=== PATIENT | female | born 1950 | race Caucasian/White ===

== ENCOUNTER 2016-08-28 12:31 | Outpatient (CLI) | payer OTHER ==
--- NOTE | 2016-08-28 13:15 | RAD ---
TWO VIEWS CHEST: Date: 08-28-16 History: Chronic cough. FINDINGS: Comparison is made with a study dated 05-24-10. Cardiac and mediastinal silhouette is within normal limits. No focal consolidation, pleural fluid, o r pneumothorax apparent. Degenerative changes are seen involving the spine. IMPRESSION: No evidence for an acute cardiopulmonary process. POS: [facility]
== END 2016-08-28 12:32 | disposition home or self-care (01) ==
LOC: MADRAD 12:31
PROVIDERS: ATTEND Family Medicine
DX: R05 Cough (principal)
CPT/HCPCS: 71020